=== PATIENT | female | born 1990 | race African-American/Black ===

== ENCOUNTER 2017-01-23 11:56 | Emergency (ER) | payer OTHER ==
[~2017-01-23] VITALS: Ht 170.2 cm; Wt 55.6 kg
[2017-01-23 12:00] VITALS: TEMP 37.1; Ht 170.2 cm; Wt 55.6 kg
--- NOTE | 2017-01-23 12:18 | EMERGENCY ROOM VISIT NOTE ---
History First contact with patient: 12:04 Chief Complaint: ABDOMINAL PAIN Stated Complaint: RIGHT LOWER ABDOMINAL AND SIDE PAIN Nursing Triage Summary: triage note; pt reports right lower abd pain since last night. History of Present Illness The patient is a 26 year old female who presents to the Emergency Room with complaints of right lower abdominal pain that started this morning when she woke up. She describes it as a dull, aching sensation. It does seem to be getting better throughout the day. Movement makes it worse taken anything for pain. She was seen in urgent care and sent here for further evaluation. Her last menstrual period was 18 days ago. She denies any urinary symptoms such as frequency, burning or hematuria. No flank pain. No nausea or vomiting. No changes in bowel movements. She did have a normal bowel movement this morning. Review of Systems 10 system review performed and negative unless noted in HPI or below Past Medical/Surgical History Otherwise healthy Social History Smoking Status: Never Smoker Occupation Status: [employer] student Current/Historical Medications No Active Prescriptions or Reported Meds Physical Exam Vital Signs Date Time Temp Pulse Resp B/P (MAP) Pulse Ox O2 Delivery O2 Flow Rate FiO2 01/23/17 14:54 91 18 129/80 99 Room Air 01/23/17 14:12 89 18 132/75 99 Room Air 01/23/17 12:00 37.1 80 18 125/89 99 Room Air Physical Exam VITALS: Vitals are noted on the nurse's note and reviewed by myself. Vital signs stable. GENERAL: 26-year-old female, in no acute distress, nondiaphoretic, well- developed well-nourished. SKIN: The skin was without rashes, erythema, edema, or bruising. HEAD: Normocephalic atraumatic. MOUTH: Mucous membranes moist. NECK: Supple without nuchal rigidity. No lymphadenopathy. Cervical spine is nontender. No JVD. HEART: Regular rate and rhythm without murmurs gallops or rubs. LUNGS: Clear to auscultation bilaterally without wheezes, rales or rhonchi. No accessory muscle use. ABDOMEN: Positive bowel sounds x 4.Soft, mild tenderness to palpation in the right lower quadrant, without organomegaly. No guarding or rebound tenderness. No CVA tenderness bilaterally. MUSCULOSKELETAL: No muscle atrophy, erythema, or edema noted. Normal gait. Strength 5/5 throughout. NEURO: Patient was alert and oriented to person place and time. Normal sensation to touch. No focal neurological deficits. Medical Decision & Procedures ER Provider Diagnostic Interpretation: abdominal US IMPRESSION: 1. Nonvisualization of the appendix. Note that this does not exclude acute appendicitis. 2. Trace nonspecific free fluid is present in the right lower quadrant. Electronically signed by: Hugo Galan M.D. 01/23/2017 1:44 PM IMPRESSION: 1. No acute sonographic abnormality is identified in the pelvis. 2. There is trace free fluid in the cul-de-sac, likely within physiologic limits. Electronically signed by: Hugo Galan M.D. 01/23/2017 1:46 PM Laboratory Results 01/23/17 12:30 Red Blood Count 4.50, Mean Corpuscular Volume 92.0, Mean Corpuscular Hemoglobin 32.4, Mean Corpuscular Hemoglobin Concent 35.3, Mean Platelet Volume 9.3, Neutrophils (%) (Auto) 47.3, Lymphocytes (%) (Auto) 41.6, Monocytes (%) (Auto) 7.3, Eosinophils (%) (Auto) 3.1, Basophils (%) (Auto) 0.5, Neutrophils # (Auto) 3.07, Lymphocytes # (Auto) 2.69, Monocytes # (Auto) 0.47, Eosinophils # (Auto) 0.20, Basophils # (Auto) 0.03 01/23/17 12:30 Test 01/23/17 12:30 01/23/17 14:15 White Blood Count 6.47 K/uL (4.8-10.8) Red Blood Count 4.50 M/uL (4.2-5.4) Hemoglobin 14.6 g/dL (12.0-16.0) Hematocrit 41.4 % (37-47) Mean Corpuscular Volume 92.0 fL (80-100) Mean Corpuscular Hemoglobin 32.4 pg (25-34) Mean Corpuscular Hemoglobin Concent 35.3 g/dl (32-36) Platelet Count 272 K/uL (130-400) Mean Platelet Volume 9.3 fL (7.4-10.4) Neutrophils (%) (Auto) 47.3 % Lymphocytes (%) (Auto) 41.6 % Monocytes (%) (Auto) 7.3 % Eosinophils (%) (Auto) 3.1 % Basophils (%) (Auto) 0.5 % Neutrophils # (Auto) 3.07 K/uL (1.4-6.5) Lymphocytes # (Auto) 2.69 K/uL (1.2-3.4) Monocytes # (Auto) 0.47 K/uL (0.11-0.59) Eosinophils # (Auto) 0.20 K/uL (0-0.5) Basophils # (Auto) 0.03 K/uL (0-0.2) RDW Standard Deviation 44.5 fL (36.4-46.3) RDW Coefficient of Variation 13.2 % (11.5-14.5) Immature Granulocyte % (Auto) 0.2 % Immature Granulocyte # (Auto) 0.01 K/uL (0.00-0.02) Anion Gap 10.0 mmol/L (3-11) Est Creatinine Clear Calc Drug Dose 100.2 ml/min Estimated GFR () 127.2 Estimated GFR (Non- 109.8 BUN/Creatinine Ratio 11.8 (10-20) Calcium Level 9.6 mg/dl (8.5-10.1) Total Bilirubin 0.6 mg/dl (0.2-1) Aspartate Amino Transf (AST/SGOT) 20 U/L (15-37) Alanine Aminotransferase (ALT/SGPT) 20 U/L (12-78) Alkaline Phosphatase 51 U/L (45-117) Total Protein 8.3 gm/dl (6.4-8.2) Albumin 4.3 gm/dl (3.4-5.0) Globulin 4.0 gm/dl (2.5-4.0) Albumin/Globulin Ratio 1.1 (0.9-2) Lipase 177 U/L (73-393) Urine Color YELLOW Urine Appearance CLEAR (CLEAR) Urine pH 7.0 (4.5-7.5) Urine Specific [place] 1.015 (1.000-1.030) Urine Protein NEG (NEG) Urine Glucose (UA) NEG (NEG) Urine Ketones 1+ (NEG) Urine Occult Blood NEG (NEG) Urine Nitrite NEG (NEG) Urine Bilirubin NEG (NEG) Urine Urobilinogen NEG (NEG) Urine Leukocyte Esterase NEG (NEG) Urine Test NEG (NEG) ED Course Patient was seen and examined Vital signs including blood pressure were reviewed medications list was verified with patient Labs were obtained, and a saline lock was established Imaging was performed and reviewed Upon reevaluation, the patient was resting comfortably in bed. We discussed her workup. She voiced understanding. I reviewed discharge instructions the patient. They voiced understanding and had no further questions. Medical Decision DIFFERENTIAL DIAGNOSIS: Gastroenteritis, Hepatitis, cholecystitis, cholangitis, biliary colic, pancreatitis, appendicitis, inguinal hernia, nephrolithiasis, inflammatory bowel disease, mesenteric adenitis, peptic ulcer disease, GERD, gastritis, pancreatitis,, bowel obstruction, splenic infarct, diverticulitis, mesenteric ischemia, metabolic, peritonitis, ovarian cysts, ovarian torsion, ectopic This patient is a pleasant 26-year-old female presents to emergency department complaining of right lower abdominal pain that started this morning after she woke up. On exam, she had mild tenderness in the right lower quadrant. She did not have any rebound tenderness. No guarding. I did not suspect an acute abdomen. She is afebrile. There is no leukocytosis. I ordered an ultrasound to evaluate her for a right ovarian cyst. No cysts were noted. She is not . It is possible that the patient is having gastrointestinal discomfort such as constipation or gas pressure. She was instructed to take ibuprofen if needed for pain. She will follow-up closely with [facility] on Thursday. She will return to the emergency department with any new or developing symptoms such as nausea, vomiting, worsening pain or fever. This chart was completed in part utilizing [employer] Voice Recognition software. Attempts were made to minimize the grammatical errors, random word insertions, pronoun errors and incomplete sentences. Any formal questions or concerns about the content, text or information contained within the body of this dictation should be directly addressed to the provider for clarification. Impression Primary Impression: Abdominal pain Departure Information Dispostion Home / Self-Care Condition GOOD Prescriptions No Active Prescriptions or Reported Meds Patient Instructions My [id number] Additional Instructions You were evaluated in the emergency department for right-sided abdominal pain. Blood work did not show any significant abnormality. No significant abnormalities were noted on the ultrasound. Please take ibuprofen 600 mg every 8 hours as needed for pain. Please follow-up with [facility] within the next 2-3 days for recheck Please return to the emergency department with any new or worsening symptoms
[2017-01-23 12:49] LABS: BASO % 0.5 %; BASO ABS # 0.03 K/uL (0-0.2); COMPLETE YES; EOS % 3.1 %; HEMATOCRIT 41.4 % (37-47); IG% 0.2 %; LYMPH % 41.6 %; LYMPH ABS # 2.69 K/uL (1.2-3.4); MEAN CORPUSCULAR HEMOGLOBIN 32.4 pg (25-34); MEAN CORPUSCULAR HGB CONC 35.3 g/dl (32-36); MEAN PLATELET VOLUME 9.3 fL (7.4-10.4); MONO % 7.3 %; NEUT % 47.3 %; PLATELET COUNT 272 K/uL (130-400); WHITE BLOOD COUNT 6.47 K/uL (4.8-10.8)
[2017-01-23 13:06] LABS: BUN/CREATININE RATIO 11.8 (10-20); CALCIUM 9.6 mg/dl (8.5-10.1); CREATININE 0.76 mg/dl (0.60-1.20); POTASSIUM 3.5 mmol/L (3.5-5.1)
[2017-01-23 13:09] LABS: ALB/GLOB RATIO 1.1 (0.9-2)
--- NOTE | 2017-01-23 13:45 | DIAGNOSTIC IMAGING REPORT ---
ULTRASOUND OF THE APPENDIX CLINICAL HISTORY: Right lower quadrant abdominal pain. COMPARISON STUDY: No priors. FINDINGS: Real-time, grayscale, and color flow sonography of the right lower quadrant was performed to assess for acute appendicitis. The appendix was not discretely visualized. No inflammatory changes is seen. Free fluid is noted in the right lower quadrant. No lymphadenopathy was seen. IMPRESSION: 1. Nonvisualization of the appendix. Note that this does not exclude acute appendicitis. 2. Trace nonspecific free fluid is present in the right lower quadrant. Electronically signed by: Hugo Galan M.D. 01/23/2017 1:44 PM Dictated Date/Time: 01/23/2017 1:43 PM
--- NOTE | 2017-01-23 13:47 | DIAGNOSTIC IMAGING REPORT ---
ULTRASOUND OF THE PELVIS CLINICAL HISTORY: Right pelvic pain. COMPARISON STUDY: No priors. TECHNIQUE: Real-time, grayscale, and color flow sonography of the pelvis is performed both transabdominally and endovaginally. Images are reviewed in the transverse and longitudinal planes. FINDINGS: Uterus: The uterus is normal in size and echotexture, measuring 6.9 x 3.2 x 4.0 cm. A Nabothian cyst is incidentally noted in the cervix. Endometrium: The endometrium is normal in appearance, and the endometrial stripe is normal in thickness measuring up to 0.9 cm. Ovaries: The ovaries are normal in size and morphology. The right ovary measures 3.0 x 2.7 x 2.7 cm and the left ovary measures 3.3 x 1.6 x 2.0 cm. Ovarian follicles are seen bilaterally. Normal Doppler waveforms are shown within both ovaries. Pelvis: There is trace free fluid in the cul-de-sac. No concerning adnexal lesion is seen. IMPRESSION: 1. No acute sonographic abnormality is identified in the pelvis. 2. There is trace free fluid in the cul-de-sac, likely within physiologic limits. Electronically signed by: Hugo Galan M.D. 01/23/2017 1:46 PM Dictated Date/Time: 01/23/2017 1:44 PM
[2017-01-23 14:25] LABS: URINE APPEARANCE CLEAR (CLEAR); URINE BILIRUBIN NEG (NEG); URINE COLOR YELLOW; URINE NITRITE NEG (NEG); URINE SPECIFIC GRAVITY 1.015 (1.000-1.030); UROBILINOGEN NEG (NEG)
[2017-01-23 14:28] LABS: MANUAL MICROSCOPIC REQUIRED? NO; REVIEW REQ? NO
[2017-01-23 14:54] VITALS: BP 129/80; PULSE 91; O2SAT 99
== END 2017-01-23 14:58 | disposition home or self-care (01) ==
LOC: C.EDB 11:59 → C.EDA 14:58
DX: R10.31 Right lower quadrant pain (principal)